=== PATIENT | male | born 1945 | race Caucasian/White ===

== ENCOUNTER 2017-01-04 16:34 | Emergency (ER) | payer OTHER, MEDICAID ==
[2017-01-04 16:52] VITALS: BP 113/73; PULSE 99; RESP 16; TEMP 97.1; O2SAT 96
--- NOTE | 2017-01-04 17:03 | EDPHY ---
H & P HPI/ROS: CHIEF COMPLAINT: Back pain Limitations: reluctant to provide clinical history HISTORY OF PRESENT ILLNESS: The patient is a homeless 71 y/o male arriving via EMS for chronic back pain. The pain is moderate and persistent. Aggravated with movement. According to the patient, he was just released from retirement, but they did not discharge him with any of his pain medications. He usually takes oxycodone for his back pain. He admits to drinking one beer today. Denies fever, cough, recent illness , or other pertinent symptoms. No drug use. REVIEW OF SYSTEMS: unable to obtain, answers no to most questions Past Medical/Surgical History: Chronic back pain Social History: Homeless, recently released from retirement Smoking Status: Unknown if ever smoked Physical Exam: General Appearance: Drowsy, slurred speech, clothes are wet, moves easily on gurney, does not appear in pain Eyes: Pupils equal and round, 2mm, no conjunctival pallor ENT, Mouth: Mucous membranes moist Neck: Normal inspection Respiratory: Lungs are clear to auscultation Cardiovascular: Regular rate and rhythm Gastrointestinal: Abdomen is soft and non-tender Back: Normal inspection, jumps to light palpitation of the entire lower back Neurological: Drowsy, nonfocal exam Skin: Warm, moist (from wet clothes) Extremities: Nontender, no swelling Psychiatric: Flat affect Constitutional: Initial Vital Signs Temperature (C) 36.2 C 01/04/17 16:48 Heart Rate 99 01/04/17 16:48 Respiratory Rate 16 01/04/17 16:48 Blood Pressure 113/73 01/04/17 16:48 O2 Sat (%) 96 01/04/17 16:48 O2 Delivery Mode Room Air Allergies/Adverse Reactions: No Known Allergies Allergy (Unverified 01/04/17 20:31) Home Medications: Medication Instructions Recorded oxyCODONE CR 01/04/17 Medical Decision Making ED Course/Re-evaluation: The patient is a homeless 71 y/o male arriving via EMS who presents with chronic back pain. He is currently drowsy and has slurred speech. Breathalyzer is 0. Plan on removal of his wet clothes (wet b/c of raining outside) and replace them with dry clothes. Plan on finding a safe, dry place to stay tonight. 1735: The patient is still very drowsy and is having difficulty talking to me and the nursing staff. Plan on placing an IV and obtain labs to rule out alternative etiology for his altered mental status. When the nurse tried to draw blood, the patient woke up immediately and got out of bed. I spoke with the patient and there appears to be no acute medical problem today. He would like pain medication for his chronic back pain. Tylenol was offered and our narcotic policy was discussed. He admits to being seen in [facility] earlier today. The patient will be discharged to a homeless halfway. Return precautions provided; patient is comfortable with this plan. Differential Diagnosis: Altered mental status including but not limited to hypoglycemia, infectious process, electrolyte abnormality, head injury and intoxicants. Departure - Departure Disposition: Home, Routine, Self-Care Clinical Impression: Chronic back pain Qualifiers: Back pain location: low back pain Back pain laterality: bilateral Sciatica presence: without sciatica Qualified Code(s): M54.5 - Low back pain; G89.29 - Other chronic pain Altered mental status Qualifiers: Altered mental status type: somnolence Qualified Code(s): R40.0 - Somnolence Condition: Good Instructions: Chronic Back Pain (ED) Additional Instructions: Follow-up with your primary doctor within 72 hours. Return to the Emergency Department for fever, chest pain, shortness of breath, increasing pain or other worsening of condition. Referrals: Enoc Merchant DO [Doctor of Osteopathy] - As per Instructions Report Scribed for: Judy Rodriguez Report Scribed by: Maria A Salinas Date of Report: 01/04/17 Time of Report: 17:03 Physician Review and Approval Statement: 01/04/17 17:03 Portions of this note were transcribed by a medical insurance claims specialist. I personally performed a history, physical exam, medical decision making, and confirmed accuracy of information the transcribed note.
[2017-01-04] MEDS ORDERED: ACETAMINOPHEN 500 MG TAB ONE ×2 (18:31)
[2017-01-04] MEDS ORDERED: ACETAMINOPHEN 160 MG/5 ML UDCUP PO ONE (18:40)
== END 2017-01-04 18:39 | disposition home or self-care (01) ==
LOC: EDUNIT#
DX: M54.5 Low back pain (principal); G89.29 Other chronic pain; R40.0 Somnolence

== ENCOUNTER 2017-01-04 20:26 | Emergency (ER) | payer OTHER, MEDICAID ==
[2017-01-04 20:35] VITALS: TEMP 97.5; O2SAT 93
--- NOTE | 2017-01-04 21:07 | EDPHY ---
H & P Stated Complaint: fell in parking lot Time Seen by Provider: 01/04/17 21:03 HPI/ROS: CHIEF COMPLAINT: Chronic back pain HISTORY OF PRESENT ILLNESS: The patient presents to the ED with complaints of chronic back pain. The patient reports that he had a fall earlier today. He reports that he has chronic gait instability. He was seen in the emergency department and plans were made to discharge the patient do the [facility]. The patient apparently did not want to get on a bus. The patient does also have a history of alcoholism and abuse. The patient reports his last drink was at 3:00 p.m. today. REVIEW OF SYSTEMS: A comprehensive 10 point review of systems is otherwise negative aside from elements mentioned in the history of present illness. Source: Patient Exam Limitations: No limitations - Medical/Surgical History Hx Asthma: No Hx Chronic Respiratory Disease: No Hx Diabetes: No Hx Cardiac Disease: No Hx Renal Disease: No Hx Cirrhosis: No Hx Alcoholism: Yes Hx HIV/AIDS: No Hx Splenectomy or Spleen Trauma: No Other PMH: ETOH, chronic back pain - Social History Smoking Status: Unknown if ever smoked - Physical Exam Exam: General Appearance: Disheveled male, no acute distress Eyes: Pupils equal and round no pallor or injection ENT, Mouth: Mucous membranes moist Respiratory: There are no retractions, lungs are clear to auscultation Cardiovascular: Regular rate and rhythm Gastrointestinal: Abdomen is soft and nontender, no masses, bowel sounds normal Neurological: Alert and oriented x4, 5/5 strength bilateral lower extremities, uncooperative with gait examination Skin: Warm and dry, no rashes Musculoskeletal: Tenderness to palpation in the lower lumbar spine primarily in the paraspinal muscles Extremities: symmetrical, full range of motion Constitutional: Initial Vital Signs Temperature (C) 36.4 C 01/04/17 20:33 Heart Rate 110 H 01/04/17 20:33 Respiratory Rate 20 01/04/17 20:33 Blood Pressure 110/68 01/04/17 20:33 O2 Sat (%) 93 01/04/17 20:33 Allergies/Adverse Reactions: No Known Allergies Allergy (Unverified 01/04/17 20:31) Home Medications: Medication Instructions Recorded oxyCODONE CR 01/04/17 Medical Decision Making ED Course/Re-evaluation: The patient is a homeless alcoholic male who presents to the emergency department with chronic back pain. The patient was observed to be ambulatory without the need for assistance earlier. The patient presents to the ED again complaining of back pain and requesting a wheelchair. The patient is also requesting placement into long-term housing. The patient has no fever. I do note his neurologic examination to be unremarkable. The patient has stable vital signs. The patient will be [facility] given his daily alcohol dependence. The patient will be discharged with a prepack of Librium in the event he developed symptoms of withdrawal. Differential Diagnosis: Differential diagnosis considered includes alcohol intoxication, back pain, myofascial strain, sciatica, lumbar radiculopathy, malingering Departure - Departure Disposition: Home, Routine, Self-Care Clinical Impression: Chronic back pain Condition: Good Instructions: Chronic Back Pain (ED) Additional Instructions: 1. Please follow-up with [facility] to establish primary care. Referrals: Brennan Mack MD [Primary Care Provider] - As per Instructions
[2017-01-04] MEDS ORDERED: CHLORDIAZEPOXIDE 25MG PREPK#6 BTL TAKEHOME ONE (21:37)
[2017-01-04 21:42] VITALS: BP 107/76; PULSE 97; RESP 16
== END 2017-01-04 21:46 | disposition home or self-care (01) ==
DX: S39.92XA Unspecified injury of lower back, initial encounter (principal); W18.30XA Fall on same level, unspecified, initial encounter; Y92.481 Parking lot as the place of occurrence of the external cause

== ENCOUNTER 2017-01-10 01:27 | Emergency (ER) | payer OTHER, MEDICAID ==
[2017-01-10 01:46] VITALS: TEMP 98.2
--- NOTE | 2017-01-10 01:48 | CPEKG ---
Heart Rate: 89 RR Interval: 674 P-R Interval: 132 QRSD Interval: 68 QT Interval: 356 QTC Interval: 434 P Roxana: 26 QRS Roxana: 37 T Wave Roxana: 58 EKG Severity - BORDERLINE ECG - EKG Impression: SINUS RHYTHM EKG Impression: BORDERLINE T WAVE ABNORMALITIES Electronically Signed By: Kalani Sams 10-Jan-2017 07:52:07
--- NOTE | 2017-01-10 02:15 | EDPHY ---
H & P Stated Complaint: CP per EMS HPI/ROS: HPI The patient presents with chest pain brought in by ambulance. Apparently the paramedics were called to pick him up outside for medication refill earlier in the night. He then called 911 again because of chest pain. The chest pain is diffuse, radiating, sharp in nature. He was given aspirin by the paramedics and now his pain is gone. He does not have any shortness of breath, nausea, vomiting, dizziness, diaphoresis. He has no complaints now, except that he is feeling hungry and is asking for Rodrigo watch.. REVIEW OF SYSTEMS Constitutional: No fever, no chills. Eyes: No discharge. ENT: No sore throat. Cardiovascular: Positive for chest pain, no palpitations. Respiratory: No cough, no shortness of breath. Gastrointestinal: No abdominal pain, no vomiting. Genitourinary: No hematuria. Musculoskeletal: No back pain. Skin: No rashes. Neurological: No headache. PMHx: Chronic back pain Soc Hx: Alcohol, homeless PHYSICAL General Appearance: Alert, disheveled Eyes: Pupils equal and round no pallor or injection ENT, Mouth: Mucous membranes moist Respiratory: There are no retractions, lungs are clear to auscultation Cardiovascular: Regular rate and rhythm Gastrointestinal: Abdomen is soft and non-tender, no masses, bowel sounds normal Neurological: A&O, moves all extremities Skin: Warm and dry, no rashes Musculoskeletal: Neck is supple non tender Extremities: symmetrical, full range of motion Psychiatric: Patient is oriented X 3, there is no agitation Source: Patient, EMS - Personal History Current Tetanus/Diphtheria Vaccine: Unsure Current Tetanus Diphtheria and Acellular Pertussis (TDAP): Unsure - Medical/Surgical History Hx Asthma: No Hx Chronic Respiratory Disease: No Hx Diabetes: No Hx Cardiac Disease: No Hx Renal Disease: No Hx Cirrhosis: No Hx Alcoholism: Yes Hx HIV/AIDS: No Hx Splenectomy or Spleen Trauma: No Other PMH: ETOH, chronic back pain - Social History Smoking Status: Unknown if ever smoked Constitutional: Initial Vital Signs Temperature (C) 36.8 C 01/10/17 01:32 Heart Rate 97 01/10/17 01:32 Respiratory Rate 16 01/10/17 01:32 Blood Pressure 119/72 01/10/17 01:32 O2 Sat (%) 98 01/10/17 01:32 O2 Delivery Mode Room Air Allergies/Adverse Reactions: No Known Allergies Allergy (Unverified 01/04/17 20:31) Home Medications: Medication Instructions Recorded oxyCODONE CR 01/04/17 Medical Decision Making - Diagnostics EKG Interpretation: EKG: Complete interpretation has been separately recorded in the [facility] archive. Summary impression: Normal sinus rhythm Imaging Results: Chest x-ray one view shows no cardiomegaly, no infiltrate, interpreted by me, radiology interpretation is pending. Imaging: I viewed and interpreted images myself Differential Diagnosis: This is a 71-year-old homeless male who presents brought in by ambulance for chest pain which is now completely resolved. He is not able to recall many of the details of his pain when directly asked. He says he is feeling much better and asks for a sandwich only. Differential diagnosis includes ACS, costochondritis, musculoskeletal pain, GERD , P, pneumothorax. Because of mild low index of suspicion of true pathology in this patient, EKG and chest x-ray alone were ordered. These demonstrated no acute disease. The patient felt better while here. He mostly asked for food. I feel he may be halfway seeking. He has been discharged home. Departure - Departure Disposition: Home, Routine, Self-Care Clinical Impression: Homelessness Chest pain Qualifiers: Chest pain type: unspecified Qualified Code(s): R07.9 - Chest pain, unspecified Condition: Good Instructions: Chest Pain (ED) Referrals: [facility],. [Clinic] - As per Instructions
[2017-01-10 03:13] VITALS: BP 102/58; PULSE 91; RESP 20; O2SAT 94
== END 2017-01-10 03:19 | disposition home or self-care (01) ==
LOC: EDUNIT#
DX: R07.9 Chest pain, unspecified (principal); Z59.0 Homelessness

== ENCOUNTER 2017-01-10 21:19 | Emergency (ER) | payer OTHER, MEDICAID ==
[2017-01-10 21:27] VITALS: BP 128/70; PULSE 94; RESP 16; TEMP 98.1; O2SAT 92
[2017-01-10] MEDS ORDERED: ACETAMINOPHEN 325 MG TAB PO ONE (21:27)
--- NOTE | 2017-01-10 21:27 | EDPHY ---
H & P Time Seen by Provider: 01/10/17 21:23 HPI/ROS: CHIEF COMPLAINT: Medication refill HISTORY OF PRESENT ILLNESS: 71-year-old male presents for a medication refill. He states that he was just released from residential and he lost his medications. He would like a refill of OxyContin and nitroglycerin. He was seen in this emergency department early this morning for chest pain. There was no evidence of acute cardiopulmonary disease during that evaluation. No chest pain now. No other c/o. REVIEW OF SYSTEMS: Constitutional: No fever, no chills Eyes: No visual changes ENT: No sore throat Respiratory: No cough, no shortness of breath Cardiac: No chest pain Gastrointestinal: no abdominal pain Genitourinary: no dysuria Musculoskeletal: No leg pain or swelling Skin: No rash Neurological: No headache Psychiatric: No depression Past Medical/Surgical History: Alcoholism Chronic back pain Coronary artery disease Social History: Homeless Smoking Status: Unknown if ever smoked Physical Exam: General Appearance: Alert, pleasant Eyes: Pupils equal and round, no conjunctival pallor ENT, Mouth: Mucous membranes moist Neck: Normal inspection Respiratory: Lungs are clear to auscultation Cardiovascular: Regular rate and rhythm Gastrointestinal: Abdomen is soft and nontender Neurological: A&O, nonfocal, normal gait Skin: Warm and dry Extremities: Normal inspection Psychiatric: Mood and affect normal Constitutional: Initial Vital Signs Temperature (C) 36.7 C 01/10/17 21:25 Heart Rate 94 01/10/17 21:25 Respiratory Rate 16 01/10/17 21:25 Blood Pressure 128/70 H 01/10/17 21:25 O2 Sat (%) 92 01/10/17 21:25 O2 Delivery Mode Room Air Allergies/Adverse Reactions: No Known Allergies Allergy (Unverified 01/04/17 20:31) Home Medications: Medication Instructions Recorded oxyCODONE CR 01/04/17 Nitroglycerin 01/10/17 Nitroglycerin [Nitrostat] 0.4 mg SL Q5M PRN #30 tab 01/10/17 Medical Decision Making ED Course/Re-evaluation: This patient states that he takes nitroglycerin as needed for chest pain because of underlying coronary artery disease. I find no previous record of known coronary artery disease in his medical record at this hospital. However, I will believe his stated medical history and dispense a prescription for nitroglycerin. He understands that [facility] will not provide prescriptions for narcotics for chronic pain. - Data Points Medications Given: Discontinued Medications Acetaminophen (Tylenol) 650 mg PO EDNOW ONE Stop: 01/10/17 21:28 Last Admin: 01/10/17 21:32 Dose: 650 mg Departure - Departure Disposition: Home, Routine, Self-Care Clinical Impression: Encounter for medication refill Condition: Good Instructions: Medicine Refill (ED) Additional Instructions: [facility] has walk-in appointments for the homeless at the following days/locations. No appointment is needed. Thursday 8-10 am @ [facility] 11 AM-1 PM @ [facility] Thursday 8-10:30 AM @ [facility] Thursday 8-10 AM @ [facility] 2-4 PM @ [facility] Thursday 8-10 AM @ [facility] Referrals: [facility],. [Clinic] - As per Instructions Prescriptions: Nitroglycerin [Nitrostat] 0.4 mg SL Q5M PRN #30 tab PRN Reason: chest pain
== END 2017-01-10 21:36 | disposition home or self-care (01) ==
LOC: EDUNIT#
DX: Z76.0 Encounter for issue of repeat prescription (principal); I25.10 Atherosclerotic heart disease of native coronary artery without angina pectoris

== ENCOUNTER 2017-03-29 16:15 | Emergency (ER) | payer OTHER, MEDICAID ==
[2017-03-29 16:29] VITALS: TEMP 98.2
--- NOTE | 2017-03-29 16:34 | EDPHY ---
H & P Time Seen by Provider: 03/29/17 16:20 HPI/ROS: CHIEF COMPLAINT: Med clear for usp, multiple complaints HISTORY OF PRESENT ILLNESS: The patient is a 72 y/o male arriving in custody of [employer], presenting for medical clearance for usp and complaining of multiple medical ailments upon arrest. He is repeatedly complaining of bilateral foot pain related to plantar fascitis and would like to receive a steroid shot for this. He is also complaining of alcohol withdrawal and would like to receive Ativan. Denies chest pain, shortness of breath, abdominal pain, fever or other pertinent symptoms. REVIEW OF SYSTEMS: Aside from elements discussed in the HPI, a comprehensive 10-point review of systems was reviewed and is negative. Past Medical/Surgical History: Chronic back pain, plantar fascitis, alcoholism Social History: Transient, Smoking Status: Unknown if ever smoked Physical Exam: General Appearance: Alert, agitated, angry at times Eyes: Pupils equal and round, no conjunctival pallor or injection ENT, Mouth: Mucous membranes moist Neck: Normal inspection Respiratory: Lungs are clear to auscultation Cardiovascular: Regular rate and rhythm Gastrointestinal: Abdomen is soft and non-tender Neurological: A&O, nonfocal Skin: Warm and dry, no rash Extremities: normal inspection, bilateral tenderness over the heels Psychiatric: Mood and affect normal Constitutional: Initial Vital Signs Temperature (C) 36.8 C 03/29/17 16:20 Heart Rate 100 03/29/17 16:20 Respiratory Rate 18 03/29/17 16:20 Blood Pressure 131/89 H 03/29/17 16:20 O2 Sat (%) 93 03/29/17 16:20 O2 Delivery Mode Room Air Allergies/Adverse Reactions: No Known Allergies Allergy (Unverified 01/04/17 20:31) Home Medications: Medication Instructions Recorded oxyCODONE CR 01/04/17 Nitroglycerin 01/10/17 Nitroglycerin [Nitrostat] 0.4 mg SL Q5M PRN #30 tab 01/10/17 Medical Decision Making ED Course/Re-evaluation: The patient is a 72 y/o male arriving in [employer] custody presenting with bilateral tenderness over the dorsal aspect of his heels. He would like to receive a shot of medication for this pain. 600mg PO Motrin administered. He does not appear in pain. Instead he appears intoxicated and argumentative. Able to walk with a steady gait. Imaging not indicated. Reassessed patient and discussed return precautions. He is medically cleared for usp. - Data Points Medications Given: Discontinued Medications Ibuprofen (Motrin) 600 mg PO EDNOW ONE Stop: 03/29/17 16:52 Last Admin: 03/29/17 16:54 Dose: 600 mg Departure - Departure Disposition: Law Enforcement/Court/Detention Clinical Impression: Plantar fasciitis, bilateral Condition: Good Instructions: Plantar Fasciitis (ED) Additional Instructions: Follow-up with your primary doctor within 72 hours for worsening symptoms. Return to the Emergency Department for fever, chest pain, shortness of breath, increasing pain or other worsening of condition. Referrals: [facility],. [Clinic] - As per Instructions Report Scribed for: Judy Rodriguez Report Scribed by: Maria A Salinas Date of Report: 03/29/17 Time of Report: 16:35 Physician Review and Approval Statement: 03/29/17 16:35 Portions of this note were transcribed by a medical billing service. I personally performed a history, physical exam, medical decision making, and confirmed accuracy of information the transcribed note.
[2017-03-29] MEDS ORDERED: IBUPROFEN 600 MG TAB PO ONE (16:51)
[2017-03-29 16:56] VITALS: BP 138/68; PULSE 81; RESP 19; O2SAT 94
== END 2017-03-29 16:59 ==
LOC: EDUNIT#
DX: M72.2 Plantar fascial fibromatosis (principal)

== ENCOUNTER 2017-04-09 03:00 | Emergency (ER) | payer OTHER, MEDICAID ==
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
[2017-04-09 03:18] VITALS: RESP 16; TEMP 97.9
[2017-04-09 06:03] VITALS: BP 140/80; PULSE 95; O2SAT 90
[2017-04-09] MEDS ORDERED: IBUPROFEN 200 MG TAB PO ONE (06:09)
[2017-04-09] MEDS ORDERED: ACETAMINOPHEN 325 MG TAB PO ONE (06:10)
== END 2017-04-09 06:02 | disposition home or self-care (01) ==
LOC: EDUNIT#
DX: S70.01XA Contusion of right hip, initial encounter (principal); Y04.0XXA Assault by unarmed brawl or fight, initial encounter

== ENCOUNTER 2017-06-21 15:28 | Emergency (ER) | payer OTHER, MEDICAID ==
[2017-06-21 15:39] VITALS: BP 148/78; PULSE 94; RESP 16; TEMP 98.6; O2SAT 95
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
== END 2017-06-21 16:48 | disposition home or self-care (01) ==
LOC: EDUNIT#
DX: S61.411A Laceration without foreign body of right hand, initial encounter (principal); I10 Essential (primary) hypertension; Z86.73 Personal history of transient ischemic attack (TIA), and cerebral infarction without residual deficits; W26.8XXA Contact with other sharp object(s), not elsewhere classified, initial encounter

== ENCOUNTER 2017-08-08 08:02 | Inpatient (IN) | payer OTHER, MEDICAID ==
--- NOTE | 2017-08-08 08:18 | EDPHY ---
HPI/HX/ROS/PE/MDM Narrative: CHIEF COMPLAINT: Seizure HISTORY OF PRESENT ILLNESS: The patient is a 72 y/o male with a history of alcoholism and a CVA arriving via EMS after having a seizure this morning. The patient was at a bus stop when he started having seizure like activity. Witnesses helped the patient to the ground and he did not suffer any trauma during the seizure. When EMS arrived, they noticed multiple bottles of alcohol near the patient. EMS reports that the patient was tachycardic and had a BGL of 114. EMS was unsure if this seizure was due to alcohol withdrawal. Upon arriving to the emergency department he states that he didn't have a seizure and is currently at [facility]. He is currently thirsty and nauseated. States he takes Oxycodone for hypertension. No fever, chills, chest pain, shortness of breath, palpitations, diarrhea, urinary complaints, headache, lightheadedness. REVIEW OF SYSTEMS: Aside from elements discussed in the HPI, a comprehensive 10-point review of systems was reviewed and is negative. PAST MEDICAL HISTORY: CVA, hypertension, chronic back pain, alcoholism SOCIAL HISTORY: Transient, single, not employed VITAL SIGNS: HR: 122 GENERAL: Somewhat unkeptd, mild increased respiratory rate. HEENT: Atraumatic. Eyes: No icterus, no injection. PERRL, EOMI. Mouth: upper dentures, poor dentition, moist mucous membranes. No erythema or lesions. Neck : supple with no adenopathy. LUNGS: Clear to auscultation bilaterally, no wheezes, rhonchi or rales. CARDIAC: Regular rate and rhythm, no rubs, murmurs or gallops. ABDOMEN: Soft, nontender, nondistended, bowel sounds normal. BACK: No CVA tenderness. EXTREMITIES: No trauma. No edema. Range of motion is normal throughout. NEURO: Perseverating, alert and oriented to date not to place, grossly nonfocal , but does not follow directions well. SKIN: Warm and dry, no rash. PSYCHIATRIC: Normal mentation, no agitation. Portions of this note were transcribed by a medical dir. I personally performed a history, physical exam, medical decision making, and confirmed accuracy of information the transcribed note. ED Course: The patient is a 72 y/o male with a history of alcoholism and a CVA arriving via EMS after having a seizure this morning. On exam he is perseverating, alert and oriented to date not to place as he believes he is at [facility]. His neuro exam is grossly nonfocal, but he does not follow directions well. Labs, chest x-ray, and head CT ordered. 1mg IV Ativan and 1L IV NS administered. 0847: Patient has a WBC of 18, blood alcohol level of 21, and CO2 of 9. These labs are consistent for post-seizure findings. 0939: Spoke with radiologist, patient has a normal head CT. 1024: Patient's chest x-ray reveals moderate bronchitis. 1027: Reassessed patient and discussed laboratory and imaging findings. Patient is more appropriate and awake. Not perseverating. Nurse reports that patient's O2Sats dropped to 70% when he was sleeping. Upon re examination the patient has diminished breath sounds. Patient received an albuterol neb and a DuoNeb. Respiratory panel was sent. He will be admitted to the hospital for ongoing hypoxia, bronchitis as well as to ensure his mentation continues to clear. 1055: Patient will need to be admitted for bronchitis; he is comfortable with this plan. 1114: Spoke with hospitalist service, Dr. Dickey accepts admission of this patient for hypoxia and what was most likely an alcohol withdrawal seizure. MDM: Differential diagnosis of the patient's seizure was considered including but not limited to electrolyte abnormality, alcohol withdrawal, medication noncompliance, head injury, meningitis, encephalitis, and breakthrough seizure. Differential diagnosis for the patient's low oxygen was considered including but not limited to bronchitis, pulmonary embolism, pneumonia, COPD, hypoventilation. - Data Points Imaging Results: Imaging Impressions Head CT 08/08/17 08:26 Impression: Mild periventricular and deep hemispheric white matter change that can be seen with small vessel ischemic disease. No evidence for acute intracranial abnormality. Results called and discussed with Dr. Paris Gamino at August 08, 2017 at 0939 hours. Chest X-Ray 08/08/17 09:42 Impression: Moderate bronchitis. Poor inspiratory effort. Imaging: Discussed imaging studies w/ scallop dredger Radiologist, I viewed and interpreted images myself Laboratory Results: Laboratory Results 08/08/17 08:00 08/08/17 08:00 08/08/17 08/08/17 08/08/17 10:52 08:00 08:00 WBC 19.00 10^3/uL H 10^3/uL (3.80-9.50) RBC 4.59 10^6/uL 10^6/uL (4.40-6.38) Hgb 14.2 g/dL g/dL (13.7-17.5) Hct 44.1 % % (40.0-51.0) MCV 96.1 fL fL (81.5-99.8) MCH 30.9 pg pg (27.9-34.1) MCHC 32.2 g/dL L g/dL (32.4-36.7) RDW 13.1 % % (11.5-15.2) Plt Count 446 10^3/uL H 10^3/uL (150-400) MPV 9.6 fL fL (8.7-11.7) Neut % (Auto) 76.3 % H % (39.3-74.2) Lymph % (Auto) 15.4 % % (15.0-45.0) [place] % (Auto) 6.8 % % (4.5-13.0) Eos % (Auto) 0.2 % L % (0.6-7.6) Baso % (Auto) 0.4 % % (0.3-1.7) Nucleat RBC Rel Count 0.0 % % (0.0-0.2) Absolute Neuts (auto) 14.51 10^3/uL H 10^3/uL (1.70-6.50) Absolute Lymphs (auto) 2.92 10^3/uL 10^3/uL (1.00-3.00) Absolute Monos (auto) 1.29 10^3/uL H 10^3/uL (0.30-0.80) Absolute Eos (auto) 0.04 10^3/uL 10^3/uL (0.03-0.40) Absolute Basos (auto) 0.07 10^3/uL 10^3/uL (0.02-0.10) Absolute Nucleated RBC 0.00 10^3/uL 10^3/uL (0-0.01) Immature Gran % 0.9 % % (0.0-1.1) Immature Gran # 0.17 10^3/uL H 10^3/uL (0.00-0.10) Sodium 133 mEq/L L mEq/L (135-145) Potassium 4.5 mEq/L mEq/L (3.5-5.2) Chloride 94 mEq/L L mEq/L (97-110) Carbon Dioxide 9 mEq/l L* mEq/l (22-31) Anion Gap 30 mEq/L H mEq/L (8-16) BUN 15 mg/dL mg/dL (7-23) Creatinine 1.1 mg/dL mg/dL (0.7-1.3) Estimated GFR > 60 Glucose 76 mg/dL mg/dL (70-100) Calcium 9.2 mg/dL mg/dL (8.5-10.4) Urine Color YELLOW Urine Appearance HAZY Urine pH 5.0 (5.0-7.5) Ur Specific [place] 1.016 (1.002-1.030) Urine Protein NEGATIVE (NEGATIVE) Urine Ketones 1+ H (NEGATIVE) Urine Blood 1+ H (NEGATIVE) Urine Nitrate NEGATIVE (NEGATIVE) Urine Bilirubin NEGATIVE (NEGATIVE) Urine Urobilinogen NEGATIVE EU EU (0.2-1.0) Ur Leukocyte Esterase NEGATIVE (NEGATIVE) Urine RBC 1-3 /hpf /hpf (0-3) Urine WBC 1-3 /hpf /hpf (0-3) Ur Epithelial Cells NONE SEEN /lpf /lpf (NONE-1+) Urine Bacteria TRACE /hpf H /hpf (NONE SEEN) Hyaline Casts 5-15 /lpf /lpf (0-1) Urine Mucus TRACE /lpf /lpf (NONE-1+) Urine Glucose NEGATIVE (NEGATIVE) Urine Opiates Screen NEGATIVE (NEGATIVE) Urine Barbiturates NEGATIVE (NEGATIVE) Ur Phencyclidine Scrn NEGATIVE (NEGATIVE) Ur Amphetamine Screen NEGATIVE (NEGATIVE) U Benzodiazepines Scrn NEGATIVE (NEGATIVE) Urine Cocaine Screen NEGATIVE (NEGATIVE) U Marijuana (THC) Screen NON-NEGATIVE H (NEGATIVE) Ethyl Alcohol 21 mg/dL H mg/dL (0-10) Medications Given: Discontinued Medications Albuterol (Proventil Neb) 3 ml IH EDNOW ONE Stop: 08/08/17 10:30 Last Admin: 08/08/17 10:53 Dose: 3 ml Albuterol/Ipratropium (Duoneb) 3 ml IH EDNOW ONE Stop: 08/08/17 10:30 Last Admin: 08/08/17 10:53 Dose: 3 ml Sodium Chloride (Ns) 1,000 mls @ 0 mls/hr IV ONCE ONE; Wide Open PRN Reason: Protocol Stop: 08/08/17 08:45 Last Admin: 08/08/17 08:46 Dose: 1,000 mls Lorazepam (Ativan Injection) 1 mg IVP EDNOW ONE Stop: 08/08/17 08:27 Last Admin: 08/08/17 08:38 Dose: 1 mg General Time Seen by Provider: 08/08/17 08:10 Initial Vital Signs: Initial Vital Signs Temperature (C) 36.8 C 08/08/17 08:02 Heart Rate 122 H 08/08/17 08:02 Respiratory Rate 16 08/08/17 08:02 Blood Pressure 111/56 L 08/08/17 08:02 O2 Sat (%) 94 08/08/17 08:02 O2 Delivery Mode Nasal Cannula Allergies/Adverse Reactions: No Known Allergies Allergy (Unverified 04/09/17 03:14) Home Medications: Medication Instructions Recorded NK [No Known Home Meds] 08/08/17 Departure - Departure Disposition: [facility] Inpatient Acute Clinical Impression: Bronchitis, Hypoxia, Alcoholism, Seizure Condition: Fair Report Scribed for: Paris Gamino Report Scribed by: Maria A Salinas Date of Report: 08/08/17 Time of Report: 08:18
[2017-08-08 08:23] LABS: PLATELET COUNT 446 10^3/uL (150-400)
[2017-08-08] MEDS ORDERED: LORazepam 2 MG/ML INJ IVP ONE (08:26)
[2017-08-08] MEDS ORDERED: NS 1,000 ML IV ONE (08:44)
[2017-08-08] MEDS ORDERED: IPRATROPIUM/ALBUTEROL 3 ML DEYVIAL IH ONE (10:29)
[2017-08-08] MEDS ORDERED: ALBUTEROL 3 ML DEYVIAL IH ONE (10:29)
[2017-08-08] MEDS ORDERED: ONDANSETRON 4 MG/2 ML VIAL IVP PRN (12:51)
[2017-08-08] MEDS ORDERED: ONDANSETRON DISINTEGRATING 4 MG TAB PO PRN (12:51)
[2017-08-08] MEDS ORDERED: ACETAMINOPHEN 325 MG TAB PO PRN (12:51)
[2017-08-08] MEDS ORDERED: LORazepam 2 MG/ML INJ IVP PRN (12:57)
[2017-08-08] MEDS ORDERED: LORazepam 1 MG TAB PO PRN (12:57)
[2017-08-08] MEDS ORDERED: NS 1,000 ML IV SCH (13:00)
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
--- NOTE | 2017-08-08 14:10 | ASMTCMCOM ---
CM Note CM Note Notes: Pt presented to the ED via EMS from a bus stop after having a witnessed seizure; pt has a history alcoholism (states drinks 2-3 beers/night) so it is unsure whether seizure related to ETOH withdrawal. Pt reports he has never had a seizure before. Pt was noted to have low oxygen sats (70% on RA while sleeping) in the ED; pt diagnosed and admitted for bronchitis and hypoxia. Pt is postictal and thinks he is at [facility]. Pt is homeless and its not clear whether he has been staying at [facility] or [facility] [place] shelters, but he has been staying at a jail nightly. This CM called [facility] Attendance Secretary ([phone]) but was unable to get through to anyone. Pt also has a history of CVA and chronic back pain. Exact DC needs unknown but anticipate dc to jail, offer ETOH treatment resources/options, PCP/ [facility] referral, possible need for supplemental oxygen, etc. Per H&P, pt has two children but he has maintained contact with them. CM to follow. Date Signed: 08/08/2017 02:09 PM Electronically Signed By:Ayla Maloney RN
--- NOTE | 2017-08-08 14:12 | ASMTLACE ---
AJI Acuity / Level of Answers: Yes Care: Did the patient have an inpatient admission? Comorbidities - select Answers: Cerebrovascular disease all that apply (CVA, TIA, aneurysms, vasc ular dementia) Opioid dependence / Chronic pain # of Emergency department Answers: 3-4 visits in the last 6 months Social determinants Answers: History of substance abuse (ETOH, street drugs, prescription drugs, etc.) Homelessness (street, long term) Lack of community resources and/or lack of social support (no pcp, lives alone, transportation, jesus d) Score: 21 Date Signed: 08/08/2017 02:11 PM Electronically Signed By:Ayla Maloney RN
--- NOTE | 2017-08-08 14:55 | PDMN ---
Medical Necessity Medical necessity: C/M review: est. > 2 MN LOS for eval and TX of acute witnessed seizure (just prior to this admission) with low CO2 level, leukocytosis, metabolic acidosis, hyponatremia, requiring IV fluids x 1 b, IV Thiamine daily x 3 days, Case management consult, ongoing Elaine, GEMA protocol , frequent neuro and RASS-ETOH withdrawal checks, monitoring for seizures, oral thiamine daily starting 08/11/2017, comorbid alcohol use, homelessness, history of CVA, hypertension, chronic back pain, alcoholism, plantar fasciitis per H/P.
[2017-08-08] MEDS: IPRATROPIUM/ALBUTEROL 3 ML DEYVIAL IH SCH ×2 (15:18→20:41)
[2017-08-08] MEDS: THIAMINE HCL 500 MG in NS 100 ML IV SCH (15:22)
[2017-08-08] MEDS: GABAPENTIN 100 MG CAP PO SCH ×2 (18:38→23:12)
[2017-08-08] MEDS: FAMOTIDINE 20 MG TAB PO SCH (23:12)
[2017-08-09] MEDS: IPRATROPIUM/ALBUTEROL 3 ML DEYVIAL IH SCH ×2 (04:39→10:08)
[2017-08-09 04:42] LABS: PLATELET COUNT 290 10^3/uL (150-400)
[2017-08-09 04:57] LABS: INR 1.21 (0.83-1.16); PROTIME(PATIENT) 15.5 SEC (12.0-15.0)
[2017-08-09] MEDS: FAMOTIDINE 20 MG TAB PO SCH (08:10)
[2017-08-09] MEDS: GABAPENTIN 100 MG CAP PO SCH (08:10)
[2017-08-09] MEDS: THIAMINE HCL 500 MG in NS 100 ML IV SCH (08:42)
[2017-08-09] MEDS ORDERED: FOLIC ACID 1 MG TAB PO SCH (09:00)
[2017-08-09] MEDS ORDERED: MULTIVITAMINS 1 EACH TAB PO SCH (09:00)
[2017-08-09 11:29] VITALS: BP 104/64
--- NOTE | 2017-08-09 15:34 | ASMTCMCOM ---
CM Note CM Note Notes: Per hospital medicine, clear for discharge. Provided with walker which he is grateful for. Taxi voucher given. Homeless Correction Bed reserved . CM available should other needs arise. Plan: To [facility] Date Signed: 08/09/2017 03:33 PM Electronically Signed By:Sofy Allen RN
[2017-08-11] MEDS ORDERED: THIAMINE HCL 100 MG TAB PO SCH (12:57)
== END 2017-08-09 16:11 | disposition home or self-care (01) | DRG 101 ==
LOC: EDUNIT# → F3E 11:57
PROVIDERS: ADMIT Internal Medicine; ATTEND Internal Medicine
DX: R56.9 Unspecified convulsions (principal); I10 Essential (primary) hypertension; E87.1 Hypo-osmolality and hyponatremia; E87.2 Acidosis; Z59.0 Homelessness; Z86.73 Personal history of transient ischemic attack (TIA), and cerebral infarction without residual deficits; Z72.89 Other problems related to lifestyle
CPT/HCPCS: 80305; 96374; G0480; J2060; J3411; J7613

== ENCOUNTER 2017-12-04 12:17 | Emergency (ER) | payer OTHER, MEDICAID ==
[2017-12-04 12:25] VITALS: BP 124/90
--- NOTE | 2017-12-04 12:26 | EDPHY ---
H & P Stated Complaint: "hurt all over" Time Seen by Provider: 12/04/17 12:24 HPI/ROS: Chief complaint: Chronic pain, medical clearance for correction History of present illness: This is a 72-year-old male brought to the emergency department by EMS and the police. He is under arrest. He is in handcuffs. He is here for medical clearance. He states he has chronic pain. He has a history of back and extremity injuries. He has had pain for years. He would like me to treat his pain. He denies any acute concerns. Review of systems: A 10 point review of systems was obtained and other than described above was negative - Personal History Current Tetanus/Diphtheria Vaccine: Unsure Current Tetanus Diphtheria and Acellular Pertussis (TDAP): Unsure - Medical/Surgical History Hx Asthma: No Hx Chronic Respiratory Disease: No Hx Diabetes: No Hx Cardiac Disease: No Hx Renal Disease: No Hx Cirrhosis: No Hx Alcoholism: Yes Hx HIV/AIDS: No Hx Splenectomy or Spleen Trauma: No Other PMH: ETOH, chronic back pain, HTN, CVA, planta faciatis - Social History Smoking Status: Current every day smoker - Physical Exam Exam: General Appearance: Alert, nontoxic. Eyes: Pupils equal and round no pallor or injection. ENT, Mouth: Mucous membranes moist. Respiratory: There are no retractions, lungs are clear to auscultation. Cardiovascular: Regular rate and rhythm. Gastrointestinal: Abdomen is soft and nontender, no masses, bowel sounds normal. Neurological: Alert. Skin: Warm and dry, no rashes. Musculoskeletal: Patient is in handcuffs. He is ambulating on his own without difficulty. Psychiatric: Patient is agitated. Constitutional: Initial Vital Signs Temperature (C) 36.3 C 12/04/17 12:17 Heart Rate 110 H 12/04/17 12:17 Respiratory Rate 15 12/04/17 12:17 Blood Pressure 124/90 H 12/04/17 12:17 O2 Sat (%) 93 12/04/17 12:17 O2 Delivery Mode Room Air Allergies/Adverse Reactions: streptomycin Allergy (Verified 12/04/17 12:22) Home Medications: Medication Instructions Recorded Acetaminophen [Tylenol 325mg (*)] 650 mg PO Q4HRS PRN tab 08/09/17 Folic Acid [Folic Acid 1 MG (*)] 1 mg PO DAILY tab 08/09/17 Multivitamins [Multivitamin (*)] 1 each PO DAILY tab 08/09/17 Thiamine HCl [Vitamin B-1] 100 mg PO DAILY tab 08/09/17 Medical Decision Making ED Course/Re-evaluation: Patient seen under the supervision of my secondary supervising physician Dr. Oliver Fuentes. Patient presents with police for medical clearance to go to correction. He states he has a long history of chronic pain and would like me to treat it and refill his medications. I discussed with him we do not treat chronic pain in the emergency department. At this point he stated he wanted to leave. He asked the police to take him away. He stated I was an "asshole." He had no acute complaints. He was discharged with the police. Departure - Departure Disposition: Law Enforcement/Court/[facility] Clinical Impression: Chronic back pain Qualifiers: Back pain location: low back pain Back pain laterality: unspecified Sciatica presence: without sciatica Qualified Code(s): M54.5 - Low back pain; G89.29 - Other chronic pain; G89.29 - Other chronic pain Condition: Good Instructions: Chronic Back Pain (ED) Additional Instructions: Follow-up with a primary care doctor for recheck If symptoms worsen or new symptoms develop return to the emergency room for recheck Medically cleared to go to correction Referrals: NONE *PRIMARY CARE P,. [Primary Care Provider] - As per Instructions [facility],. [Clinic] - As per Instructions
== END 2017-12-04 12:30 ==
LOC: EDUNIT#
DX: M54.5 Low back pain (principal); G89.29 Other chronic pain; I10 Essential (primary) hypertension; F17.200 Nicotine dependence, unspecified, uncomplicated